=== PATIENT | female | born 1950 | race Asian ===

== ENCOUNTER 2018-12-10 07:32 | Day surgery (SDC) | payer OTHER ==
[~2018-12-10] VITALS: Ht 160 cm; Wt 46.4 kg
[2018-12-10] VITALS (11 sets, daily range): BP systolic 125–138; BP diastolic 70–85; PULSE 72–78; RESP 13–32; Ht 160 cm; Wt 46.4 kg
[~2018-12-10 07:32] MED LIST: ALEN10TA6 PO; OMEP20CA16 PO
--- NOTE | 2018-12-10 07:50 | HPN ---
Date/Time of Note Date/Time of Note DATE: 12/10/18 TIME: 07:50 Interval H&P Admission Note Pt. seen H&P reviewed: No system changes RAFAEL STONER MD Dec 10, 2018 07:50
[2018-12-10] MEDS ORDERED: SOD CHLORIDE 0.9% 1,000 ML IV SCH (08:00)
[2018-12-10] MEDS ORDERED: IBAN150T7 PO (08:26)
[2018-12-10] MEDS ORDERED: MIDAZOLAM 1 MG/ML 2 ML INJ ONE (09:14)
[2018-12-10] MEDS ORDERED: FENTAnyl 50 MCG/ML VIAL ONE (09:14)
[2018-12-10] MEDS ORDERED: LIDOCAINE 1% (MPF) 5 ML VIAL ONE (09:14)
== END 2018-12-10 12:43 | disposition home or self-care (01) ==
LOC: SDS 07:32
PROVIDERS: ATTEND Internal Medicine Hematology & Oncology
DX: D72.818 Other decreased white blood cell count (principal)
CPT/HCPCS: 38221; 77012; 88305; 88311; 88313; J2250; J3010